=== PATIENT | female | born 1955 | race Caucasian/White ===

== ENCOUNTER 2019-01-19 19:29 | Day surgery (SDC) | payer OTHER ==
[2019-01-19] MEDS ORDERED: MORPHINE 2 MG/ML CARPUJECT IVP STA ×3 (19:55→22:15)
[2019-01-19] MEDS ORDERED: TETANUS/DIPHTHERIA/PERTUSSIS 0.5 ML SYRINGE IM ONE (19:55)
[2019-01-19] MEDS ORDERED: ONDANSETRON 4 MG/2 ML VIAL IVP STA (19:55)
[2019-01-19] MEDS ORDERED: SODIUM CHLORIDE 0.9% 1,000 ML IV ONE (19:55)
--- NOTE | 2019-01-19 20:14 | ED Physician Documentation ---
History of Present Illness - Stated complaint Stated Complaint: LFT LEG LAC - Chief complaint Chief Complaint: Laceration - Additonal information Additional information: This is a 64-year-old female with a history of hypothyroidism who presents with a left lower leg injury after a fall from horse and horse impacting her leg. She fell off her horse earlier today and denies hitting her head neck or back, she did not lose consciousness. Her horses foot came down on her left leg in the calf and the back of the knee area. She had immediate pain in the area and she had to crawl afterwards because she could not walk on it. She has since been able to bear a small amount of weight, but has not been able to walk since this happened. She had bleeding through her pants. She denies any weakness, numbness, or tingling. Her last Tdap was 6 years ago. Review of Systems Constitutional: denies: Fever Cardiac: denies: Chest pain / pressure Respiratory: denies: Cough GI: denies: Abdominal Pain Skin: reports: Laceration (s) Musculoskeletal: denies: Neck pain Neurologic: denies: Generalized weakness PD PAST MEDICAL HISTORY - Past Medical History Past Medical History: Yes Endocrine/Autoimmune: HyPOthyroidism - Allergies Allergies/Adverse Reactions: Allergies Allergy/AdvReac Type Severity Reaction Status Date / Time minocycline AdvReac Dizziness Verified 01/19/19 19:37 - Living Situation Living Arrangement: reports: At home - Social History Does the pt have substance abuse?: No - Family History Family history: reports: Non contributory - Immunizations Immunizations: Other immun current (Tdap 6 years ago) PD ED PE NORMAL - Vitals Vital signs reviewed: Yes - General General: Alert and oriented X 3, No acute distress - HEENT HEENT: PERRL - Neck Neck: Supple, no meningeal sign - Cardiac Cardiac: RRR, No murmur - Respiratory Respiratory: Clear bilaterally - Abdomen Abdomen: Normal bowel sounds, Soft, Non tender, Non distended - Derm Derm: Warm and dry - Extremities Extremities: Other (There is a 20 cm horseshoe-shaped laceration on the right medial aspect of the calf, as well as a 7cm linear laceration just inferior to the popliteal fossa with no active bleeding but hematoma present. There is also a second linear laceration to the level of the popliteal fossa on the left. The margins of the horshoe laceration have dusky tissue extending up to 0.5cm in por tions. Lacerations probe through the subcutaneous tissue to the level of the muscle. They do not probe to the level of the joint capsule. Patient is able to wiggle her toes, dorsiflex and plantarflex the ankle with pain but with no weakness, she has 2+ DP and PT pulses which are equal and symmetric bilaterally. Sensation is intact over the entire LLE.) - Neuro Neuro: Alert and oriented X 3 - Psych Psych: Normal mood, Normal affect Results - Vitals Vitals: Vital Signs - 24 hr 01/19/19 01/19/19 01/19/19 19:37 20:38 21:30 Temperature 36.5 C Heart Rate 61 91 95 Heart Rate [ Brachial] Respiratory 16 25 H 17 Rate Blood Pressure 82/38 L 132/71 H 121/71 Blood Pressure [Left Brachial artery] Blood Pressure [Right Brachial artery] O2 Saturation 99 98 98 01/19/19 01/20/19 01/20/19 22:27 00:22 00:25 Temperature 36.8 C Heart Rate 86 104 H 98 Heart Rate [ Brachial] Respiratory 16 20 15 Rate Blood Pressure 127/65 123/71 135/67 H Blood Pressure [Left Brachial artery] Blood Pressure [Right Brachial artery] O2 Saturation 98 99 97 01/20/19 01/20/19 01/20/19 00:30 00:35 00:42 Temperature Heart Rate 99 95 94 Heart Rate [ Brachial] Respiratory 19 22 20 Rate Blood Pressure 128/70 127/74 122/80 Blood Pressure [Left Brachial artery] Blood Pressure [Right Brachial artery] O2 Saturation 93 94 97 01/20/19 01/20/19 01/20/19 00:55 01:10 01:43 Temperature 37.0 C 36.8 C Heart Rate 87 Heart Rate [ 86 81 Brachial] Respiratory 26 H 20 18 Rate Blood Pressure 127/73 Blood Pressure 124/65 128/66 [Left Brachial artery] Blood Pressure [Right Brachial artery] O2 Saturation 96 100 96 01/20/19 01/20/19 02:48 03:50 Temperature 36.8 C 36.7 C Heart Rate Heart Rate [ 78 81 Brachial] Respiratory 18 18 Rate Blood Pressure Blood Pressure 110/59 L [Left Brachial artery] Blood Pressure 112/57 L [Right Brachial artery] O2 Saturation 96 96 Oxygen O2 Source Room air - Labs Labs: Laboratory Tests 01/19/19 22:45 WBC 15.6 H RBC 3.73 L Hgb 11.5 L Hct 35.1 L MCV 94.1 MCH 30.8 MCHC 32.8 RDW 13.0 Plt Count 288 MPV 9.4 Neut # (Auto) 12.6 H Lymph # (Auto) 1.6 [place] # (Auto) 1.2 H Eos # (Auto) 0.1 Baso # (Auto) 0.1 Absolute Nucleated RBC 0.00 Nucleated RBC % 0.0 PD MEDICAL DECISION MAKING - ED course Complexity details: considered differential (Laceration, risk for wound infection, traumatic arthrotomy, neurovascular injury, crush injury, fracture, contusion, tendon injury) ED course: On initial examination patient is in obvious discomfort, she has large lacerations to her left leg in the region is significantly tender. She was given 4 mg of morphine, as well as Zofran and normal saline bolus. Her triage blood pressure was borderline hypotensive, however repeat was within normal limi ts, and she is no signs of significant bleeding, I am not sure what the cause of her initial recorded hypotension was, and it may have been measurement error. On examination, the wound does probe past the subcutaneous tissue extends to the level of the muscle, but there is no involvement of the joint. Given the extensive nature of her laceration and the depth of them, as well as some dusky tissue on the avulsion/horseshoe-shaped laceration, I think should be best served by a debridement and formal washout in the operating room. I discussed this with the patient who agrees with this plan. I consulted Dr. Busby of orthopedics, who agreed to take patient to the operating room for repair. She was given Ancef and an additional dose of morphine for pain control. I did obtain some plain films of her extremity which did not show any signs of fracture. She has strong pulses, she is neurologically intact, and she has no obvious signs of tendon injury on my exploration and muscle testing, however further aspiration will be performed in the operating room. Patient was taken to the operating room, and will likely be discharged home afterwards. Departure - Departure Disposition: ED Transfer to [facility] Discharge Date/Time: 01/19/19 23:08
[2019-01-19] MEDS ORDERED: ceFAZolin 2 GM in SODIUM CHLORIDE 0.9% 100ML 100 ML IV STA (20:35)
[2019-01-19] MEDS ORDERED: ceFAZolin 1 GM VIAL ONE (20:49)
--- NOTE | 2019-01-19 21:09 | XRAY Report ---
Reason: horse stepped on leg Procedure Date: 01/19/2019 Accession Number: [id number] / [id number] Procedure: XR - Tib/Fib LT CPT Code: FULL RESULT: EXAM: LEFT TIBIA/FIBULA RADIOGRAPHY EXAM DATE: 01/19/2019 08:31 PM. CLINICAL HISTORY: Horse stepped on leg. COMPARISON: KNEE 3 VIEW LT 01/19/2019 8:06 PM. TECHNIQUE: 2 views. FINDINGS: Bones: No acute fractures or suspicious bone lesions. Joints: No subluxations. Soft Tissues: Laceration at the medial soft tissues around the knee joint. IMPRESSION: No acute fracture. RADIA
--- NOTE | 2019-01-19 21:25 | XRAY Report ---
Reason: horse stepped on leg Procedure Date: 01/19/2019 Accession Number: [id number] / [id number] Procedure: XR - Knee 2 View LT CPT Code: FULL RESULT: EXAM: LEFT KNEE RADIOGRAPHY EXAM DATE: 01/19/2019 08:31 PM. CLINICAL HISTORY: Horse stepped on leg. COMPARISON: XR KNEE 3 VIEW 04/26/2007 3:50 PM. TECHNIQUE: 2 views. FINDINGS: Bones: No acute fractures or suspicious bone lesions. Joints: No effusion. No subluxations. Soft Tissues: Soft tissue laceration medially. IMPRESSION: No acute fracture. RADIA
[2019-01-19] MEDS ORDERED: LACTATED RINGERS 1,000 ML IV ONE ×3 (21:59→23:41)
--- NOTE | 2019-01-19 22:27 | PROVIDER PROGRESS NOTE ---
Subjective - Prog Note Date Prog Note Date: 01/19/19 Prog Note Time: 22:24 - Subjective Pt reports feeling: Worse Objective - Vital Signs/Intake & Output Vital Signs: Vital Signs x48h Temp Pulse Resp BP Pulse Ox 01/19/19 21:30 95 17 121/71 98 01/19/19 20:38 91 25 H 132/71 H 98 01/19/19 19:37 36.5 C 61 16 82/38 L 99 Intake & Output: Intake & Output 01/16/19 01/17/19 01/18/19 01/19/19 23:59 23:59 23:59 23:59 Intake Total 1100 Balance 1100 - Other Results/Comments Other Results/Comments: EXAM: Complex laceration left posterior calf. N/V ok distally Assessment/Plan - Problem List (1) Laceration of left calf without complication Impression: PLAN: To OR for irrigation and debridement of laceration and primary closure of left calf wound. Risk and benefit of surgery explained. Questions answered. Consult signed. Qualifiers: Encounter type: initial encounter Qualified Code(s): S81.812A - Laceration without foreign body, left lower leg, initial encounter
[2019-01-19] MEDS: LACTATED RINGERS 1,000 ML IV SCH (22:29)
--- NOTE | 2019-01-19 22:47 | ANESTHESIA ---
Pre-Anesthesia VS, & Labs - Diagnosis leg wound - Procedure washout and closure of complex leg wound Vital Signs: Temp Pulse Resp BP Pulse Ox 36.5 C 86 16 127/65 98 01/19/19 19:37 01/19/19 22:27 01/19/19 22:27 01/19/19 22:27 01/19/19 22:27 Height 5 ft Weight (kg) 51.256 kg Body Mass Index 22.0 - NPO >8 hours - Is Patient ?: Not Applicable Home Medications and Allergies Active Medications Lactated Ringer's (Lr) 1,000 mls @ 125 mls/hr IV .Q8H SERGO Last Admin: 01/19/19 22:29 Dose: 125 mls/hr Allergies/Adverse Reactions: Allergies Allergy/AdvReac Type Severity Reaction Status Date / Time minocycline AdvReac Dizziness Verified 01/19/19 19:37 Anes History & Medical History - Anesthetic History Anesthesia Complications: reports: No previous complications Family history of Anesthesia Complications: Denies Family history of Malignant Hyperthermia: Denies - Medical History Cardiovascular: reports: None Pulmonary: reports: Asthma Gastrointestinal: reports: None Urinary: reports: None Neuro: reports: None Musculoskeletal: reports: None Endocrine/Autoimmune: reports: HyPOthyroidism Blood Disorders: reports: None Skin: reports: None Smoking Status: Never smoker - Surgical History General: Gastric surgery Eyes Ears Nose Throat (EENT): Cataracts Gynecologic: section Orthopedic: Carpal Tunnel surgery Exam General: Alert, Oriented x3, Cooperative, No acute distress Dental: Other (implant) Mouth Openin Fingerbreadth Neck Mobility: Normal Mallampati classification: III Thyromental Distance: 4-6 cm Respiratory: Wheezing Cardiovascular: Regular rate, Normal S1, Normal S2, No murmurs Plan Anesthesia Type: General Consent for Procedure(s) Verified and Reviewed: Yes Code Status: Attempt Resuscitation ASA classification: 2-Mild systemic disease Is this case an emergency?: Yes
[2019-01-19 22:48] LABS: BASOPHILS # (AUTO) 0.1 10^3/uL (0.0-0.1); BASOPHILS % (AUTO) 0.5 %; EOSINOPHILS # (AUTO) 0.1 10^3/uL (0.0-0.7); EOSINOPHILS % (AUTO) 0.4 %; HGB - HEMOGLOBIN 11.5 g/dL (12.0-16.0); LYMPHOCYTES # (AUTO) 1.6 10^3/uL (1.5-3.5); MEAN CORPUSCULAR HEMOGLOBIN 30.8 pg (27.0-31.0); MEAN CORPUSCULAR HGB CONC 32.8 g/dL (32.0-36.0); MEAN CORPUSCULAR VOLUME 94.1 fL (81.0-99.0); MEAN PLATELET VOLUME 9.4 fL (7.9-10.8); MONOCYTES # (AUTO) 1.2 10^3/uL (0.0-1.0); MONOCYTES % (AUTO) 7.7 %; NEUTROPHILS # (AUTO) 12.6 10^3/uL (1.5-6.6); NEUTROPHILS % (AUTO) 80.9 %; PLT - PLATELET COUNT 288 10^3/uL (130-450); RED BLOOD COUNT 3.73 10^6/uL (4.20-5.40); WHITE BLOOD COUNT 15.6 x10^3/uL (4.8-10.8)
[2019-01-19] MEDS ORDERED: SODIUM CHLORIDE 0.9% 1,000 ML IV SCH (23:00)
--- NOTE | 2019-01-19 23:18 | PREOP HISTORY & PHYSICAL ---
DATE OF SERVICE: 01/19/2019 Physician: Maurice Busby MD REFERRING PHYSICIAN: Dr. Aldrich of the Emergency Room Department. CHIEF COMPLAINT: "My horse stepped on my leg." HISTORY OF PRESENT ILLNESS: The patient is a 64-year-old female who apparently sustained a n injury to the posterior aspect of her proximal left calf this evening. She was walking her horse w hen her horse got spooked and as a result of this, the horse ended up stepping on her posterior left calf. She was wearing a stretchy material pants which did not tear, but she did sustain a rather com plex laceration involving the posterior proximal calf. No prior injuries noted. She was able to sta nd and weight bear on this extremity after the injury. No distal weakness and numbness noted. No ot her injuries were noted. She apparently last had a light meal of broccoli and rice at between 4:30 a nd 5 p.m. on the day of her injury. PAST MEDICAL HISTORY: Chronic medical problems - history of hypothyroidism. CURRENT MEDICATIONS: Synthroid. ALLERGIES: MINOCYCLINE MEDICATION, THOUGH THIS DOES NOT CREATE ANY RESPIRATORY PROBLEMS. SOCIAL HISTORY: The patient lives with her in an apartment in the upper part of a [place] in the [facility]. PHYSICAL EXAMINATION VITAL SIGNS: Temperature 36.5 degrees centigrade, pulse 90, blood pressure 121/71, respiratory rate 15. HEENT: Normocephalic. PERRLA. EOMs full. Vision and hearing grossly intact and symmetrical. Nose and throat clear. CHEST: Clear to auscultation without any crepitation or abnormal breath sounds. CARDIOVASCULAR: Regular rate and rhythm. S1 and S2 heard without murmurs, rubs or gallops noted. ABDOMEN: Soft, nontender, active bowel sounds noted. EXTREMITIES: Within normal limits except for the left lower extremity. Left lower extremity just di stal to the popliteal fossa and in the posterior calf region shows a rather extensive zigzag type lac eration down to the gastrocnemius muscle. The patient is able to move her toes and her ankles with m inimal discomfort in flexion and extension without problems. Neurovascularly intact distally. Good capillary filling noted of the toes. The patient also has good active and passive range of motion of her knee, although it is somewhat uncomfortable. No gross instability appreciated. No knee effusio n noted. IMAGING: No acute fractures or dislocation appreciated. ASSESSMENT 1. Complex deep laceration in the posterior calf of the left lower extremity secondary to being st epped on by a horse. 2. History of hypothyroidism. PLAN: Due to the rather extensive nature of her laceration and the fact that she was stepped on by a horse, it would be optimal to proceed with debridement and irrigation of her wound and exploration a s needed in the operating room. I did discuss with her the fact that the nature of her skin flaps co uld lead to some tip necrosis of her triangular skin flaps, which were based anteromedially. Also, p ossibility of a wound infection was explained, as well. We answered her questions today. Risks and benefits of surgery were explained to her, including infection, skin slough, neurovascular compromise , deep venous thrombosis, etc. She appears to understand her options and wishes to proceed with surg theron as planned. We will go ahead and mobilize the operating room and proceed with surgery later this evening. Consent has been signed. TD: 01/19/2019 22:25
[2019-01-20] MEDS ORDERED: BUPIVACAINE 0.25% PF 30 ML VIAL ONE
[2019-01-20] MEDS ORDERED: BUPIVACAINE 0.25% PF 30 ML VIAL SUBQ ONE (00:01)
[2019-01-20] MEDS ORDERED: ACETAMINOPHEN 1,000 MG/100 ML 100 ML IV PRN (00:41)
[2019-01-20] MEDS ORDERED: PROCHLORPERAZINE 10 MG/2 ML VIAL IVP PRN (00:41)
[2019-01-20] MEDS ORDERED: SODIUM CHLORIDE FLUSH 0.9% 10 ML SYRINGE IVP PRN (00:41)
[2019-01-20] MEDS ORDERED: ACETAMINOPHEN 325 MG TABLET PO PRN (00:41)
[2019-01-20] MEDS ORDERED: ONDANSETRON 4 MG/2 ML VIAL IVP PRN (00:41)
--- NOTE | 2019-01-20 00:48 | OPERATIVE REPORT ---
Operative Report - General Procedure Date: 01/20/19 Planned Procedure: Irrigation and debridement with primary closure of left leg wound Pre-Op Diagnosis: Complex left calf laceration Procedure Performed: Irrigation, debridement, and primary closure of left leg wound Post Op Diagnosis: Same - Procedure Note Primary Surgeon: KIMBERLY Mccullough Secondary Surgeon: Kiana Nugent MD Anesthesia Technique: General LMA IV Fluids (mL): 500 Estimated Blood Loss (mL): 100 Complications: None
[2019-01-20] MEDS ORDERED: ceFAZolin 2 GM in SODIUM CHLORIDE 0.9% 100ML 100 ML IV SCH ×2 (01:00→04:00)
[2019-01-20] MEDS ORDERED: SODIUM CHLORIDE 0.9% 1,000 ML IV SCH (01:00)
--- NOTE | 2019-01-20 01:11 | OPERATIVE REPORT ---
DATE OF SERVICE: 01/19/2019 Physician: Maurice Busby MD PREOPERATIVE DIAGNOSIS: Complex left leg wound. POSTOPERATIVE DIAGNOSIS: Complex left leg wound. PROCEDURE PERFORMED: Irrigation and debridement with primary closure of complex left leg wound. SURGEON: Maurice Busby MD. ANESTHESIA: General. DESCRIPTION OF PROCEDURE: Patient was taken to the operating room on the evening of 01/19/2019, wher e she was placed under general anesthetic without any complications. We then positioned her on the f racture table supine. A thigh pneumatic tourniquet was placed on the left thigh, but it was not infl ated during our procedure. We then prepped and draped the leg free in the usual fashion for our proc edure. We examined her complex leg wound, noting that there was a little bruised discoloration at th e tip of the triangular skin flap overlying the proximal calf. There was minimal gross contamination that was visible in the wounds. Minimal bleeding was also appreciated. Very minimal debridement wa s actually necessary since the skin edges appeared to be clean and viable. We proceeded then to copi ously irrigate the wound with a pulse lavage apparatus, a total of 4000 mL of sterile saline utilized for the washout. At the end the procedure we then closed the wound primarily using a combination of 4-0 suture and skin andrea. We were able to obtain fairly easy closure of the wound. The skin fla p was not under any significant tension. We then washed the wounds, applied Xeroform gauze, fluffs, Kerlix, and an Hollis wrap used to dress this wound. The leg was then placed in a knee immobilizer to m inimize the knee flexion over the next few days. It should be noted also we did inject a total of 30 mL of 0.25% Marcaine without epinephrine to help with laceration local anesthesia before we dressed the leg wound. The patient was then taken to recovery room in satisfactory condition. ESTIMATED BLOOD LOSS: 100 mL. REPLACEMENT: 500 mL crystalloid. TOURNIQUET TIME: None. INTRAOPERATIVE COMPLICATIONS: None. PLAN: The patient will be discharged when stable with her . Two prescriptions for antibiotic s for 7 days as well as pain medication were given as well. She may go weightbearing as tolerated on the left leg with the leg in a knee immobilizer. She will follow up in orthopedic clinic in about 5 days for a wound check. TD: 01/20/2019 00:56
[2019-01-20] MEDS: SODIUM CHLORIDE FLUSH 0.9% 10 ML SYRINGE IVP SCH ×2 (02:49→04:00)
[2019-01-20] MEDS: oxyCODONE 5 MG TABLET PO PRN ×2 (03:59→08:06)
[2019-01-20] MEDS: LACTATED RINGERS 1,000 ML IV SCH (05:35)
[2019-01-20 08:04] VITALS: BP 105/58
== END 2019-01-20 09:10 | disposition home or self-care (01) ==
LOC: ED 19:29 → SDS 20:00 → MS2 01-20 01:26 → SDS 01-20 09:10
PROVIDERS: ATTEND Orthopaedic Surgery
PROC: 0JQP0ZZ Repair Left Lower Leg Subcutaneous Tissue and Fascia, Open Approach (ICD-10-PCS; principal; 2019-01-19 23:00)
DX: S81.812A Laceration without foreign body, left lower leg, initial encounter (principal); W55.19XA Other contact with horse, initial encounter; R03.1 Nonspecific low blood-pressure reading
CPT/HCPCS: 12006; 36415; 73560; 73590; 85025; 90471; 90715; 96365; 96366; 96375; 96376; 99284; 99285; A9270; J7120

== ENCOUNTER 2019-11-28 14:33 | Outpatient (CLI) | payer OTHER ==
--- NOTE | 2019-11-29 07:39 | XRAY Report ---
PROCEDURE: Ankle 3 View LT INDICATIONS: LEFT ANKLE INJURY TECHNIQUE: 3 views of the ankle were acquired. COMPARISON: X-ray left ankle, 02/01/2019 FINDINGS: Bones: No fractures or dislocations. Ankle mortise is normally aligned. No suspicious bony lesions . Soft tissues: A single small tibiotalar joint effusion. Achilles tendon appears normal. IMPRESSION: No fracture or dislocation. If pain persists, advanced imaging such as CT or MRI may be helpful. Reviewed by: Ron Stewart MD on 11/28/2019 2:37 PM PDT Approved by: Ron Stewart MD on 11/28/2019 2:37 PM PDT Station ID: [id number]
== END 2019-11-28 23:59 | disposition home or self-care (01) ==
LOC: DI.S 14:33
PROVIDERS: ATTEND Emergency Medicine
DX: M25.579 Pain in unspecified ankle and joints of unspecified foot (principal)

== ENCOUNTER 2022-11-10 10:03 | Emergency (ER) | payer OTHER ==
[2022-11-10 10:16] VITALS: BP 134/71
--- OUTSIDE RECORDS SUMMARY | 2022-11-10 10:32 | EXTERNAL MEDICAL SUMMARY RPT | Continuity of Care Document ---
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 Name Role Phone Graciela Medrano Pa-C Unavailable Unavailable Medications date description facility 2022-10-18 00:00 lifitegrast [facility] [place] 2022-10-18 00:00 prednisone [facility] [place] 2022-10-18 00:00 cefpodoxime [facility] [place] 2022-10-18 00:00 azithromycin [facility] [place] 2022-10-18 00:00 prednisone [facility] [place] 2022-10-18 00:00 lifitegrast [facility] [place] 2022-10-18 00:00 lifitegrast [facility] [place] 2022-10-18 00:00 benzonatate [facility] [place] 2022-10-18 00:00 prednisone [facility] [place] 2022-10-18 00:00 cefpodoxime [facility] [place] 2022-10-18 00:00 benzonatate [facility] [place] 2022-10-18 00:00 azithromycin [facility] [place] 2022-10-18 00:00 cefpodoxime [facility] [place] 2022-10-18 00:00 prednisone [facility] [place] 2022-10-18 00:00 codeine-guaifenesin [facility] [place] 2022-10-18 00:00 benzonatate [facility] [place] 2022-10-18 00:00 codeine-guaifenesin [facility] [place] 2022-10-18 00:00 albuterol sulfate [facility] [place] 2022-10-18 00:00 albuterol sulfate [facility] [place] 2022-10-18 00:00 codeine-guaifenesin [facility] [place] 2022-10-18 00:00 azithromycin [facility] [place] 2022-10-18 00:00 azithromycin [facility] [place] 2022-10-18 00:00 cefpodoxime [facility] [place] 2022-10-18 00:00 albuterol sulfate [facility] [place] 2022-10-18 00:00 benzonatate [facility] [place] 2022-10-18 00:00 albuterol sulfate [facility] [place] 2022-10-18 00:00 lifitegrast [facility] [place]
[2022-11-10] MEDS ORDERED: HYDROcod/ACETAM 5/325 MG TABLET PO STA (10:44)
--- NOTE | 2022-11-10 10:45 | ED Physician Documentation ---
PD HPI UPPER EXT INJURY - Stated complaint Stated Complaint: L BICEP INJURY - Chief complaint Chief Complaint: Trauma Ext - History obtained from History obtained from: Patient - Additonal information Additional information: Her horse reared up and she was holding with the left arm and she felt a pop in the left bicep. She has a history of prior right bicep tear repair to the [facility]. She is right-handed. Pain is severe. No other injuries. She did not fall. 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: Endometriosis : None HEENT: None Psych: None Musculoskeletal: None Derm: None - Past Surgical History General: Gastric surgery Ortho: Carpal Tunnel surgery /CAKE INSPECTOR: section HEENT: Cataracts - Present Medications Home Medications: Ambulatory Orders Medication Instructions Recorded Confirmed HYDROcod/ACETAM 5/325 [[place] 5/325] 1 - 2 tab PO Q6H PRN #15 tablet 11/10/22 - Allergies Allergies/Adverse Reactions: Allergies Allergy/AdvReac Type Severity Reaction Status Date / Time minocycline AdvReac Dizziness Verified 11/10/22 10:12 Sulfa (Sulfonamide AdvReac Rash Verified 11/10/22 10:12 Antibiotics) - Social History Does the pt smoke?: No Smoking Status: Never smoker Does the pt drink ETOH?: Yes Does the pt have substance abuse?: No - Immunizations Immunizations are current?: Yes Immunizations: Other immun current (Tdap 6 years ago) PD ED PE NORMAL - Vitals Vital signs reviewed: Yes - General General: Alert and oriented X 3, No acute distress - Extremities Extremities: Other (There is a palpable divot in the left bicep but with relatively maintained strength but with pain probably consistent with at least a partial bicep tear.) - Neuro Neuro: Alert and oriented X 3, Normal speech - Psych Psych: Normal mood, Normal affect Results - Vitals Vitals: Vital Signs - 24 hr 11/10/22 10:07 Temperature 36.2 C L Heart Rate 107 H Respiratory 16 Rate Blood Pressure 134/71 H O2 Saturation 98 Oxygen O2 Source Room air Procedures - Splint (location) - Minor LUE Splint applied by: Physician Type of splint: Fiberglass, Long arm, Posterior Other: Patient tolerated well, Neurovascular intact, Sling provided PD Medical Decision Making - ED course ED course: Appears to have at least a partial bicep tear. She is placed in a fiberglass Splint at 90 degrees with a sling and she plans to see her surgeon at the [place] as opposed to the local surgeon. Departure - Departure Disposition: 01 Home, Self Care Clinical Impression: Rupture of left biceps tendon Condition: Good Record reviewed to determine appropriate education?: Yes Prescriptions: HYDROcod/ACETAM 5/325 [[place] 5/325] 1 - 2 tab PO Q6H PRN #15 tablet PRN Reason: Pain Comments: I sent your prescription to [facility] in [place]. Call your surgeon at tomorrow. Keep splint/sling on/dry until eval by orthopedics. I am prescribing a short course of narcotic pain medication for you. These are potentially dangerous and addictive medications that should be used carefully. These medications may constipate you. Take an [id number]-efy-lmqdutt stool softener (docusate) twice daily with plenty of water while taking these medications. If you go 24 hours without a bowel movement, take [id number] miralax, per package instructions. Do not drink or drive while taking these medications. If you received narcotic or sedating medications while in the emergency department, do not drive for 24 hours. Store this medication in a safe, secure place and out of reach of children. It is a violation of federal law to give or sell this medication to another person or to use in a manner other than prescribed. The ED will not refill narcotic prescriptions, including prescriptions lost or stolen. To dispose of unwanted medications: 1. [facility] at [address] in [place] has a medication drop box. They accept prescription medications (in pill form) Friday through Friday 9:00 a.m. to 5:00 p.m. 2. The [facility] [employer] accepts prescription medications (in pill form only) for disposal year round. Call for more information. 3. Contact the [facility] for the next [facility] sponsored prescription drug collection event. , [phone], or [phone]; Note that many narcotic pain relievers also contain Tylenol/acetaminophen. Please ensure that your total dose of acetaminophen from all sources does not exceed 3 g (3000 mg) per day.
== END 2022-11-10 11:55 | disposition home or self-care (01) ==
LOC: ED 10:03
DX: S46.212A Strain of muscle, fascia and tendon of other parts of biceps, left arm, initial encounter (principal); X58.XXXA Exposure to other specified factors, initial encounter; Y93.52 Activity, horseback riding
CPT/HCPCS: 29105; 99282; 99283; A9270